=== PATIENT | male | born 1955 | race Caucasian/White ===

== ENCOUNTER 2022-03-10 07:16 | Outpatient (CLI) | payer MEDICARE, OTHER | END 2022-03-10 13:44 | disposition home or self-care (01) | LOC: LAB 07:16 | PROVIDERS: ATTEND Surgery | DX: Z01.812 Encounter for preprocedural laboratory examination (principal); Z20.822 Contact with and (suspected) exposure to COVID-19 ==

== ENCOUNTER 2022-03-12 06:09 | Day surgery (SDC) | payer MEDICARE, OTHER ==
[2022-03-12] MEDS ORDERED: PROPOFOL 200 MG/20 ML BOTTLE IV ONE (06:10)
[2022-03-12] MEDS ORDERED: LIDOCAINE-MPF 2% 5 ML VIAL IJ ONE (06:10)
[2022-03-12 07:28] LABS: *BILIRUBIN,URIN NEGATIVE (NEGATIVE); *CLARITY,URINE CLEAR (CLEAR); *COLOR,URINE YELLOW (YELLOW); *KETONES,URINE NEGATIVE (NEGATIVE); *UROBILINOGEN,URINE 0.2 E.U./dl (NORMAL); LEUKOCYTE ESTERASE ,URINE NEGATIVE (NEGATIVE); NITRITE, URINE NEGATIVE (NEGATIVE); PH,URINE 5.5 (5.0-8.0); UGLUCOSE NEGATIVE (NEGATIVE)
[2022-03-12 07:31] LABS: HEMATOCRIT 36.9 % (36.7-47.1); MEAN CORPUSCULAR HEMOGLOBIN 20.7 uug (23.8-33.4); MEAN CORPUSCULAR VOLUME 63.6 fL (73.0-96.2); PLATELET COUNT (AUTO) 214 K/uL (152-348)
[2022-03-12 07:33] LABS: POTASSIUM 3.8 mmol/L (3.5-5.1)
[2022-03-12 07:38] LABS: *BLOOD, URINE TRACE (NEGATIVE)
[2022-03-12 07:39] LABS: TOTAL PROTEIN, SERUM 7.5 g/dL (6.4-8.2)
[2022-03-12 08:13] LABS: BACTERIA,URINE NONE SEEN /HPF (NONE SEEN); RBC,URINE NONE SEEN /HPF (0-3); WBC,URINE 0-3 /HPF (0-3)
[2022-03-12 08:14] LABS: SQUAMOUS EPITHELIAL CELL,UR FEW /HPF (NONE SEEN)
== END 2022-03-12 11:07 | disposition home or self-care (01) ==
LOC: DS 06:09
PROVIDERS: ATTEND Surgery
DX: R19.4 Change in bowel habit (principal); K21.9 Gastro-esophageal reflux disease without esophagitis; D50.8 Other iron deficiency anemias; K44.9 Diaphragmatic hernia without obstruction or gangrene; K64.8 Other hemorrhoids; K63.89 Other specified diseases of intestine; K31.89 Other diseases of stomach and duodenum; I11.9 Hypertensive heart disease without heart failure; E78.5 Hyperlipidemia, unspecified; M19.90 Unspecified osteoarthritis, unspecified site; K58.9 Irritable bowel syndrome, unspecified; Z86.010 Personal history of colon polyps; Z72.89 Other problems related to lifestyle; Z79.899 Other long term (current) drug therapy; Z98.890 Other specified postprocedural states
CPT/HCPCS: 36415; 43239; 45378; 71045; 80053; 81001; 85025; 85730; 93005; J3490; J7120; A4663